=== PATIENT | male | born 1975 | race Caucasian/White ===

== ENCOUNTER 2018-05-20 05:30 | Day surgery (SDC) | payer BC ==
[~2018-05-20] VITALS: Ht 177.8 cm; Wt 109.5 kg
[~2018-05-20 05:30] MED LIST: ACET325T14 PO; [UNRECOGNIZED DRUG - OTHER]
[2018-05-20] MEDS ORDERED: LACTATED RINGERS 1,000 ML IV SCH (06:10)
[2018-05-20 06:13] VITALS: BP 175/74
[2018-05-20] MEDS ORDERED: BUPIVACAINE/PF 0.25% ONE (06:14)
[2018-05-20] MEDS ORDERED: EPINEPHRINE 1 MG/ML, 1ML ONE (06:14)
[2018-05-20] MEDS ORDERED: MIDAZOLAM 1 MG/ML, 2ML ONE (06:21)
[2018-05-20] MEDS ORDERED: FENTANYL PF 100 MCG/2ML ONE ×2 (06:21→08:34)
[2018-05-20] MEDS ORDERED: ONDANSETRON 2MG/ML, 2ML ONE (06:49)
[2018-05-20] MEDS ORDERED: DEXAMETHASONE 4 MG/ML, 5ML ONE (06:49)
[2018-05-20] MEDS ORDERED: CEFAZOLIN 1,000 MG ONE (06:49)
[2018-05-20] MEDS ORDERED: LIDOCAINE-MPF 2% ,5ML ONE (06:49)
[2018-05-20] MEDS ORDERED: SUCCINYLCHOLINE 20 MG/ML, 10ML ONE (06:49)
[2018-05-20] MEDS ORDERED: KETOROLAC 30 MG/1 ML ONE (06:49)
[2018-05-20] MEDS ORDERED: ROCURONIUM 10 MG/ML,10ML ONE (06:49)
[2018-05-20] MEDS ORDERED: PROPOFOL 10 MG/ML, 50ML ONE (06:49)
[2018-05-20] MEDS ORDERED: CLINDAMYCIN 150 MG/ML, 6ML ONE (07:05)
[2018-05-20] MEDS ORDERED: ACETAMINOPHEN 325 MG TABLET PO PRN (07:30)
[2018-05-20] MEDS ORDERED: OXYcodone 5 MG/5 ML ORAL.SOL UDC PO PRN (07:30)
[2018-05-20] MEDS ORDERED: FENTANYL PF 100 MCG/2ML IV PRN (07:30)
[2018-05-20] MEDS ORDERED: LORazepam 2 MG/ML, 1ML IVPush PRN (07:30)
[2018-05-20] MEDS ORDERED: METOCLOPRAMIDE 5 MG/ML, 2ML IV PRN (07:30)
[2018-05-20] MEDS ORDERED: HYDROmorphone 2 MG/ML, 1ML IVPush PRN (07:30)
[2018-05-20] MEDS ORDERED: MEPERIDINE/PF 25MG/0.5ML IVPush PRN (07:30)
[2018-05-20] MEDS ORDERED: SUGAMMADEX 200 MG/2 ML IVPush ONE (07:39)
[2018-05-20] MEDS ORDERED: OXYcodone 5 MG/5 ML ORAL.SOL UDC ONE (08:33)
== END 2018-05-20 10:15 | disposition home or self-care (01) ==
LOC: OUT 05:30
PROVIDERS: ATTEND Orthopaedic Surgery
DX: S46.212A Strain of muscle, fascia and tendon of other parts of biceps, left arm, initial encounter (principal); X58.XXXA Exposure to other specified factors, initial encounter; Y93.89 Activity, other specified; Y92.89 Other specified places as the place of occurrence of the external cause; Y99.8 Other external cause status
CPT/HCPCS: 24342; 64415; 73070; 76000; C1713; J0171; J0330; J0690; J1100; J1885; J2250; J2405; J2704; J3010; J3490; J7120